=== PATIENT | male | born 1985 | race Caucasian/White ===

== ENCOUNTER 2016-06-24 20:11 | Emergency (ER) | payer OTHER ==
[~2016-06-24 20:11] MED LIST: /QUET25TA; CELE20TA
[2016-06-24] MEDS ORDERED: predniSONE 20 MG TAB As Ordered ONE (21:41)
[2016-06-24] MEDS ORDERED: AZITHROMYCIN 250 MG TAB As Ordered ONE (21:41)
--- NOTE | 2016-06-24 21:49 | EDDOCDS ---
Nurse's Notes [facility] Name: Sher Rollins Age: 30 yrs Sex: Male : 1985 Arrival Date: 06/24/2016 Time: 20:11 Bed TR8 Private MD: Rachel Richard C Diagnosis: Acute upper respiratory infections of multiple and unspecified sites;Acute bronchitis Presentation: 06/24 20:14 Presenting complaint: Patient states: Sick on and off for months--trouble breathing, mcp coughing, chills, hot flashes, headache, losing voice. Adult Sepsis Screening: The patient does not have new or worsening altered mentation. Patient's respiratory rate is less than 22. Systolic blood pressure is greater than 100. Patient has a qSOFA score of 0- Negative Sepsis Screen. Suicide/Homicide risk assessment- the patient denies having any suicidal and/or homicidal ideations and does not present with any other emotional, behavioral or mental health complaints. Status: Patient is not a personal service representative or dependent. Transition of care: patient was not received from another setting of care. 20:14 Acuity: CONRAD Level 4 [facility] 20:14 Method Of Arrival: Walkin/Carried/Asstd [facility] Triage Assessment: 20:17 General: Appears in no apparent distress, Behavior is cooperative. Pain: Location: [facility] headache Pain currently is 4 out of 10 on a pain scale. HIV screening NA for this visit Offered previously. Neurological: Reports headache. Respiratory: Airway is patent Respiratory effort is even, unlabored, Reports cough that is non-productive, persistent. Derm: Skin is pink, warm & dry. Historical: - Allergies: PENICILLINS; - Home Meds: 1. Nexium 40 mg Oral cpDR 1 cap 2 times per day 2. is starting topamax tomorrow - PMHx: GERD; Hiatal Hernia; nerve pain; Chronic Back pain; - PSHx: eye surgery x2; - Social history: Smoking status: Patient states former smoker of tobacco. No barriers to communication noted, The patient speaks fluent Tanzanian. - Family history: Not pertinent. - : The pt / caregiver states he / she is not on anticoagulants. Home medication list is obtained from the patient. - Exposure Risk Screening:: None identified. Screenin:47 Screening information is obtained from the patient. Fall risk: No risks identified. cz Assistance ADL's: requires no assistance with activities of daily living. Abuse/DV Screen: The patient / caregiver reports he/she is: not in a situation that causes fear, pain or injury. Nutritional screening: No deficits noted. home support is adequate. Assessment: 21:47 Reassessment: Patient appears in no apparent distress at this time. cz Vital Signs: 20:12 BP 158 / 111; Pulse 90; Resp 18; Temp 99.3(O); Pulse Ox 99% ; Weight 70.31 kg; Height 5 elp ft. 9 in. (175.26 cm); Pain 0/10; 21:46 BP 154 / 105; Pulse 90; Resp 18; Pulse Ox 98% on R/A; jb5 20:12 Body Mass Index 22.89 (70.31 kg, 175.26 cm) [facility] Vitals: 20:12 Log In Time: June 24, 2016 at 20:10. elp ED Course: 20:12 Patient visited by Celia Dodd PCA. elp 20:12 Rachel Richard is Private Physician. elp 20:12 Patient moved to Waiting elp 20:13 Patient visited by Celia Dodd PCA. elp 20:13 Patient moved to Pre RCE elp 20:16 Triage Initiated mcp 20:18 Patient visited by Tracy Cantu RN. mcp 21:01 Patient moved to Triage 3 jb5 21:10 [facility] cc[facility] 21:10 Lavon Waller DO is Attending Physician. cc10 21:32 Patient visited by Sean David PA-C. cc10 21:33 Patient visited by Sean David PA-C. cc10 21:40 Rachel Richard is Referral Physician. cc10 21:46 Patient visited by Stacy Lang PCA. jb5 21:47 Patient moved to TR8 jb5 21:47 The patient / caregiver is instructed regarding the plan of care and ED course. cz 21:47 No IV's were initiated during this patient's visit. No procedures done that require cz assistance. Administered Medications: 21:43 Drug: azithromycin 500 mg [azithromycin 250 mg tablet (2 tabs)] Route: PO; cz 21:43 Drug: predniSONE 40 mg [prednisone 20 mg tablet (2 tabs)] Route: PO; cz Order Results: There are currently no results for this order. Outcome: 21:40 Discharge ordered by Provider. cc10 21:47 Discharge Assessment: Patient awake, alert and oriented x 3. No cognitive and/or cz functional deficits noted. Patient verbalized understanding of disposition instructions. patient administered narcotics - no. The following High Risk Discharge criteria are identified: None. Discharged to home ambulatory. Condition: stable. Discharge instructions given to patient, Instructed on discharge instructions, follow up and referral plans. medication usage, Demonstrated understanding of instructions, medications, Pt was receptive of discharge instructions/ teaching. Prescriptions given X 3. No special radiology studies were completed. Property :Personal belongings accompany Pt. 21:48 Patient left the ED. cz Signatures: Tracy Cantu RN RN John Tejeda RN RN cz Baker, Janet, UNIFORM CAP OPERATOR UNIFORM CAP OPERATOR jb5 Celia Dodd, UNIFORM CAP OPERATOR UNIFORM CAP OPERATOR elp Sean David, PA-C PA-C cc10 MTDJorge A
--- NOTE | 2016-06-24 21:49 | EDDOCDS ---
Physician Documentation [facility] Name: Sher Rollins Age: 30 yrs Sex: Male : 1985 Arrival Date: 06/24/2016 Time: 20:11 Bed TR8 Private MD: Rachel Richard C Disposition: 06/24/16 21:40 Discharged to Home/Self Care. Impression: Acute upper respiratory infections of multiple and unspecified sites, Acute bronchitis. - Condition is Stable. - Discharge Instructions: Acute Bronchitis. - Prescriptions for azithromycin 250 mg Oral tablet - take 1 tablet by ORAL route once daily; 4 tablet. Prednisone 20 mg Oral Tablet - take 2 tablet by ORAL route once daily for 5 days; 10 tablet. Albuterol Sulfate 90 mcg/actuation Inhalation HFA Aerosol Inhaler - inhale 2 puff by INHALATION route every 4 hours As needed; 1 Inhaler. - Medication Reconciliation, Local Pharmacy Hours form. - Follow up: Rachel Richard; When: Call to arrange an appointment; Reason: Wound/Symptom Recheck, Recheck today's complaints, Worsening of conditions, Continuance of care. - Problem is an ongoing problem. - Symptoms are unchanged. Historical: - Allergies: PENICILLINS; - Home Meds: 1. Nexium 40 mg Oral cpDR 1 cap 2 times per day 2. is starting topamax tomorrow - PMHx: GERD; Hiatal Hernia; nerve pain; Chronic Back pain; - PSHx: eye surgery x2; - Social history: Smoking status: Patient states former smoker of tobacco. No barriers to communication noted, The patient speaks fluent Surinamese. - Family history: Not pertinent. - : The pt / caregiver states he / she is not on anticoagulants. Home medication list is obtained from the patient. - Exposure Risk Screening:: None identified. Vital Signs: 06/24 20:12 BP 158 / 111; Pulse 90; Resp 18; Temp 99.3(O); Pulse Ox 99% ; Weight 70.31 kg / 155.01 elp lbs; Height 5 ft. 9 in. (175.26 cm); Pain 0/10; 21:46 BP 154 / 105; Pulse 90; Resp 18; Pulse Ox 98% on R/A; jb5 20:12 Body Mass Index 22.89 (70.31 kg, 175.26 cm) elp MDM: 21:39 azithromycin 500 mg PO once ordered. cc10 21:39 predniSONE 40 mg PO once; administer with food or milk ordered. cc10 Administered Medications: 21:43 Drug: azithromycin 500 mg [azithromycin 250 mg tablet (2 tabs)] Route: PO; cz 21:43 Drug: predniSONE 40 mg [prednisone 20 mg tablet (2 tabs)] Route: PO; cz Signatures: Tracy Cantu RN RN mcp Zecher, Calvin, RN RN cz Coniski, Colin, PA-C PAMelissa cc10 MTDD
--- NOTE | 2016-06-28 10:01 | EDDOCDS ---
Physician Documentation [facility] Name: Sher Rollins Age: 30 yrs Sex: Male : 1985 Arrival Date: 06/24/2016 Time: 20:11 Bed TR8 Private MD: Rachel Richard C Disposition: 06/24/16 21:40 Discharged to Home/Self Care. Impression: Acute upper respiratory infections of multiple and unspecified sites, Acute bronchitis. - Condition is Stable. - Discharge Instructions: Acute Bronchitis. - Prescriptions for azithromycin 250 mg Oral tablet - take 1 tablet by ORAL route once daily; 4 tablet. Prednisone 20 mg Oral Tablet - take 2 tablet by ORAL route once daily for 5 days; 10 tablet. Albuterol Sulfate 90 mcg/actuation Inhalation HFA Aerosol Inhaler - inhale 2 puff by INHALATION route every 4 hours As needed; 1 Inhaler. - Medication Reconciliation, Local Pharmacy Hours form. - Follow up: Rachel Richard; When: Call to arrange an appointment; Reason: Wound/Symptom Recheck, Recheck today's complaints, Worsening of conditions, Continuance of care. - Problem is an ongoing problem. - Symptoms are unchanged. Historical: - Allergies: PENICILLINS; - Home Meds: 1. Nexium 40 mg Oral cpDR 1 cap 2 times per day 2. is starting topamax tomorrow - PMHx: GERD; Hiatal Hernia; nerve pain; Chronic Back pain; - PSHx: eye surgery x2; - Social history: Smoking status: Patient states former smoker of tobacco. No barriers to communication noted, The patient speaks fluent Ghanaian. - Family history: Not pertinent. - : The pt / caregiver states he / she is not on anticoagulants. Home medication list is obtained from the patient. - Exposure Risk Screening:: None identified. Vital Signs: 06/24 20:12 BP 158 / 111; Pulse 90; Resp 18; Temp 99.3(O); Pulse Ox 99% ; Weight 70.31 kg / 155.01 elp lbs; Height 5 ft. 9 in. (175.26 cm); Pain 0/10; 21:46 BP 154 / 105; Pulse 90; Resp 18; Pulse Ox 98% on R/A; jb5 20:12 Body Mass Index 22.89 (70.31 kg, 175.26 cm) elp MDM: 21:39 azithromycin 500 mg PO once ordered. cc10 21:39 predniSONE 40 mg PO once; administer with food or milk ordered. cc10 06/25 08:24 T-Sheet-- Draft Copy was scanned into [employer] and attached to record. [facility] Administered Medications: 06/24 21:43 Drug: azithromycin 500 mg [azithromycin 250 mg tablet (2 tabs)] Route: PO; cz 21:43 Drug: predniSONE 40 mg [prednisone 20 mg tablet (2 tabs)] Route: PO; cz Signatures: Tracy Cantu RN RN [facility] John Luz RN RN Sean Pfeiffer, PA-C PA-C cc Marlen Banegas [facility] The chart was reviewed and I authenticate all verbal orders and agree with the evaluation and treatment provided.Attachments: 06/25 08:24 T-Sheet-- Draft Copy [facility] Chart Complete MTDD
--- NOTE | 2016-06-28 10:01 | EDDOCDS ---
Nurse's Notes [facility] Name: Sher Rollins Age: 30 yrs Sex: Male : 1985 Arrival Date: 06/24/2016 Time: 20:11 Bed TR8 Private MD: Rachel Richard C Diagnosis: Acute upper respiratory infections of multiple and unspecified sites;Acute bronchitis Presentation: 06/24 20:14 Presenting complaint: Patient states: Sick on and off for months--trouble breathing, mcp coughing, chills, hot flashes, headache, losing voice. Adult Sepsis Screening: The patient does not have new or worsening altered mentation. Patient's respiratory rate is less than 22. Systolic blood pressure is greater than 100. Patient has a qSOFA score of 0- Negative Sepsis Screen. Suicide/Homicide risk assessment- the patient denies having any suicidal and/or homicidal ideations and does not present with any other emotional, behavioral or mental health complaints. Status: Patient is not a service desk manager or dependent. Transition of care: patient was not received from another setting of care. 20:14 Acuity: CONRAD Level 4 [facility] 20:14 Method Of Arrival: Walkin/Carried/Asstd [facility] Triage Assessment: 20:17 General: Appears in no apparent distress, Behavior is cooperative. Pain: Location: [facility] headache Pain currently is 4 out of 10 on a pain scale. HIV screening NA for this visit Offered previously. Neurological: Reports headache. Respiratory: Airway is patent Respiratory effort is even, unlabored, Reports cough that is non-productive, persistent. Derm: Skin is pink, warm & dry. Historical: - Allergies: PENICILLINS; - Home Meds: 1. Nexium 40 mg Oral cpDR 1 cap 2 times per day 2. is starting topamax tomorrow - PMHx: GERD; Hiatal Hernia; nerve pain; Chronic Back pain; - PSHx: eye surgery x2; - Social history: Smoking status: Patient states former smoker of tobacco. No barriers to communication noted, The patient speaks fluent Norwegian. - Family history: Not pertinent. - : The pt / caregiver states he / she is not on anticoagulants. Home medication list is obtained from the patient. - Exposure Risk Screening:: None identified. Screenin:47 Screening information is obtained from the patient. Fall risk: No risks identified. cz Assistance ADL's: requires no assistance with activities of daily living. Abuse/DV Screen: The patient / caregiver reports he/she is: not in a situation that causes fear, pain or injury. Nutritional screening: No deficits noted. home support is adequate. Assessment: 21:47 Reassessment: Patient appears in no apparent distress at this time. cz Vital Signs: 20:12 BP 158 / 111; Pulse 90; Resp 18; Temp 99.3(O); Pulse Ox 99% ; Weight 70.31 kg; Height 5 elp ft. 9 in. (175.26 cm); Pain 0/10; 21:46 BP 154 / 105; Pulse 90; Resp 18; Pulse Ox 98% on R/A; jb5 20:12 Body Mass Index 22.89 (70.31 kg, 175.26 cm) el Vitals: 20:12 Log In Time: June 24, 2016 at 20:10. elp ED Course: 20:12 Patient visited by Celia Dodd PCA. elp 20:12 Rachel Richard is Private Physician. elp 20:12 Patient moved to Waiting elp 20:13 Patient visited by Celia Dodd PCA. elp 20:13 Patient moved to Pre RCE elp 20:16 Triage Initiated mcp 20:18 Patient visited by Tracy Cantu RN. mcp 21:01 Patient moved to Triage 3 jb5 21:10 [facility] cc[facility] 21:10 Lavon Waller DO is Attending Physician. cc10 21:32 Patient visited by Sean David PA-C. cc10 21:33 Patient visited by Sean David PA-C. cc10 21:40 Rachel Richard is Referral Physician. cc10 21:46 Patient visited by Stacy Lang PCA. jb5 21:47 Patient moved to TR8 jb5 21:47 The patient / caregiver is instructed regarding the plan of care and ED course. cz 21:47 No IV's were initiated during this patient's visit. No procedures done that require cz assistance. 06/25 08:24 T-Sheet-- Draft Copy was scanned into [employer] and attached to record. [facility] Administered Medications: 06/24 21:43 Drug: azithromycin 500 mg [azithromycin 250 mg tablet (2 tabs)] Route: PO; cz 21:43 Drug: predniSONE 40 mg [prednisone 20 mg tablet (2 tabs)] Route: PO; cz Order Results: There are currently no results for this order. Outcome: 21:40 Discharge ordered by Provider. cc10 21:47 Discharge Assessment: Patient awake, alert and oriented x 3. No cognitive and/or cz functional deficits noted. Patient verbalized understanding of disposition instructions. patient administered narcotics - no. The following High Risk Discharge criteria are identified: None. Discharged to home ambulatory. Condition: stable. Discharge instructions given to patient, Instructed on discharge instructions, follow up and referral plans. medication usage, Demonstrated understanding of instructions, medications, Pt was receptive of discharge instructions/ teaching. Prescriptions given X 3. No special radiology studies were completed. Property :Personal belongings accompany Pt. 21:48 Patient left the ED. cz Signatures: Tracy Cantu RN RN John Tejeda RN RN cz Baker, Janet, SOIL SURVEYOR SOIL SURVEYOR Celia Yin, SOIL SURVEYOR SOIL SURVEYOR Sean Lima PA-C PA-C cc10 Marlen Banegas Chart Complete MTDJorge A
--- NOTE | 2016-06-28 10:01 | EDDOCDS ---
Physician Documentation [facility] Name: Sher Rollins Age: 30 yrs Sex: Male : 1985 Arrival Date: 06/24/2016 Time: 20:11 Bed TR8 Private MD: Rachel Richard C Disposition: 06/24/16 21:40 Discharged to Home/Self Care. Impression: Acute upper respiratory infections of multiple and unspecified sites, Acute bronchitis. - Condition is Stable. - Discharge Instructions: Acute Bronchitis. - Prescriptions for azithromycin 250 mg Oral tablet - take 1 tablet by ORAL route once daily; 4 tablet. Prednisone 20 mg Oral Tablet - take 2 tablet by ORAL route once daily for 5 days; 10 tablet. Albuterol Sulfate 90 mcg/actuation Inhalation HFA Aerosol Inhaler - inhale 2 puff by INHALATION route every 4 hours As needed; 1 Inhaler. - Medication Reconciliation, Local Pharmacy Hours form. - Follow up: Rachel Richard; When: Call to arrange an appointment; Reason: Wound/Symptom Recheck, Recheck today's complaints, Worsening of conditions, Continuance of care. - Problem is an ongoing problem. - Symptoms are unchanged. Historical: - Allergies: PENICILLINS; - Home Meds: 1. Nexium 40 mg Oral cpDR 1 cap 2 times per day 2. is starting topamax tomorrow - PMHx: GERD; Hiatal Hernia; nerve pain; Chronic Back pain; - PSHx: eye surgery x2; - Social history: Smoking status: Patient states former smoker of tobacco. No barriers to communication noted, The patient speaks fluent Scottish. - Family history: Not pertinent. - : The pt / caregiver states he / she is not on anticoagulants. Home medication list is obtained from the patient. - Exposure Risk Screening:: None identified. Vital Signs: 06/24 20:12 BP 158 / 111; Pulse 90; Resp 18; Temp 99.3(O); Pulse Ox 99% ; Weight 70.31 kg / 155.01 elp lbs; Height 5 ft. 9 in. (175.26 cm); Pain 0/10; 21:46 BP 154 / 105; Pulse 90; Resp 18; Pulse Ox 98% on R/A; jb5 20:12 Body Mass Index 22.89 (70.31 kg, 175.26 cm) elp MDM: 21:39 azithromycin 500 mg PO once ordered. cc10 21:39 predniSONE 40 mg PO once; administer with food or milk ordered. cc10 06/25 08:24 T-Sheet-- Draft Copy was scanned into [employer] and attached to record. [facility] Administered Medications: 06/24 21:43 Drug: azithromycin 500 mg [azithromycin 250 mg tablet (2 tabs)] Route: PO; cz 21:43 Drug: predniSONE 40 mg [prednisone 20 mg tablet (2 tabs)] Route: PO; cz Signatures: Tracy Cantu RN RN [facility] John Luz RN RN Sean Pfeiffer, PA-C PA-C cc Marlen Banegas [facility] The chart was reviewed and I authenticate all verbal orders and agree with the evaluation and treatment provided.Attachments: 06/25 08:24 T-Sheet-- Draft Copy [facility] Chart Complete MTDD
== END 2016-06-24 21:48 | disposition home or self-care (01) ==
LOC: M ED 20:11
DX: J20.9 Acute bronchitis, unspecified (principal); J06.9 Acute upper respiratory infection, unspecified; K21.9 Gastro-esophageal reflux disease without esophagitis; G89.29 Other chronic pain; M54.9 Dorsalgia, unspecified; G52.9 Cranial nerve disorder, unspecified; K44.9 Diaphragmatic hernia without obstruction or gangrene; Z87.891 Personal history of nicotine dependence; Z79.899 Other long term (current) drug therapy; Z88.0 Allergy status to penicillin

== ENCOUNTER → 2016-07-14 | Outpatient (CLI) | payer OTHER ==
--- NOTE | 2016-07-15 02:40 | REP ---
Clinical: Chronic obstructive pulmonary disease . Comparison: 05/07/2015 . Technique: PA and lateral. Findings: The mediastinum and cardiac silhouette are normal. The lung chavez demonstrate diffuse coarsened markings which may reflect chronic reactive airway disease/bronchitis. No focal consolidation, effusion or pneumothorax. The skeletal structures are intact and normal. Impression: 1. Coarsened markings are suggested which may reflect chronic reactive airway disease/bronchitis. Correlation is recommended. Consider chest CT if the patient remains symptomatic. Signed by Baldomero Campbell MD 07/15/2016 02:31 A
== END ==
LOC: M RAD 16:23
PROVIDERS: ATTEND Physician Assistant Medical
DX: J44.9 Chronic obstructive pulmonary disease, unspecified (principal)

== ENCOUNTER → 2016-08-12 | Outpatient (REF) | payer OTHER | LOC: M LAB REF 16:40 | PROVIDERS: ATTEND Physician Assistant | DX: B34.9 Viral infection, unspecified (principal) ==

== ENCOUNTER → 2016-09-08 | Outpatient (CLI) | payer OTHER ==
--- NOTE | 2016-09-08 15:46 | REP ---
CHEST, TWO VIEWS: HISTORY: COPD. COMPARISON: 07/14/2016. Minimal parabrachial cuffing is present. The heart is normal in size. The pulmonary vasculature is normal in appearance. The bony structure is intact. IMPRESSION: There is minimal peribronchial cuffing consistent with asthma or bronchitis. Signed by Rmoe Lopez MD 09/08/2016 03:51 P
== END ==
LOC: M LAB 14:58
PROVIDERS: ATTEND Physician Assistant Medical
DX: J44.9 Chronic obstructive pulmonary disease, unspecified (principal)

== ENCOUNTER → 2016-11-07 | Outpatient (CLI) | payer OTHER ==
[2016-11-07 10:34] LABS: BASO # 0.1 K/mm3 (0.0-0.2); BASO % 0.9 % (0.0-1.0); EOS # 0.2 K/mm3 (0.0-0.50); EOS % 2.8 % (0.0-3.0); LYMPH # 1.9 K/mm3 (1.5-4.5); LYMPH % 24.7 % (24.0-44.0); MEAN CORPUSCULAR HEMOGLOBIN 34.3 pg (27.0-33.0); MEAN CORPUSCULAR HGB CONC 34.9 g/dl (32.0-36.5); MEAN CORPUSCULAR VOLUME 98.3 fl (80.0-96.0); MONO # 0.4 K/mm3 (0.0-0.8); MONO % 6.1 % (0.0-5.0); NEUTROPHILS # 4.5 K/mm3 (1.8-7.7); NEUTROPHILS % 63.3 % (36.0-66.0); RED CELL DISTRIBUTION WIDTH 12.5 % (11.5-14.5); WHITE BLOOD COUNT 7.1 K/mm3 (4.0-10.0)
[2016-11-07 10:57] LABS: ALBUMIN 3.7 GM/DL (3.2-5.2); ALBUMIN/GLOBULIN RATIO 1.23 (1.00-1.93); ALKALINE PHOSPHATASE 78 U/L (45-117); ALT/SGPT 46 U/L (12-78); ANION GAP 7 MEQ/L (8-16); AST/SGOT 26 U/L (15-37); BILIRUBIN,TOTAL 0.6 MG/DL (0.2-1.0); BLOOD UREA NITROGEN 15 MG/DL (7-18); CARBON DIOXIDE LEVEL 32 MEQ/L (21-32); CHLORIDE LEVEL 101 MEQ/L (98-107); CHOLESTEROL LEVEL 161 MG/DL (<200); GLOMERULAR FILTRATION RATE > 60.0 (>60); GLUCOSE, FASTING 95 MG/DL (70-105); POTASSIUM SERUM 4.6 MEQ/L (3.5-5.1); SODIUM LEVEL 140 MEQ/L (136-145); TOTAL PROTEIN 6.7 GM/DL (6.4-8.2); TRIGLYCERIDES LEVEL 98 MG/DL (<150)
== END ==
LOC: M LAB 09:54
PROVIDERS: ATTEND Physician Assistant Medical
DX: J44.9 Chronic obstructive pulmonary disease, unspecified (principal); Z72.0 Tobacco use

== ENCOUNTER 2016-12-29 15:49 | Emergency (ER) | payer OTHER ==
[~2016-12-29] VITALS: Ht 172.7 cm; Wt 74.3 kg
[2016-12-29 15:52] VITALS: BP 159/89
[2016-12-29] MEDS ORDERED: NEXI40CA PO (16:00)
[2016-12-29] MEDS ORDERED: CLEO300C2 PO (16:54)
== END 2016-12-29 17:01 | disposition home or self-care (01) ==
LOC: M ED 15:49
DX: L02.412 Cutaneous abscess of left axilla (principal); F41.9 Anxiety disorder, unspecified; F32.9 Major depressive disorder, single episode, unspecified; F60.3 Borderline personality disorder; F17.200 Nicotine dependence, unspecified, uncomplicated; Z86.14 Personal history of Methicillin resistant Staphylococcus aureus infection; Z79.899 Other long term (current) drug therapy

== ENCOUNTER → 2017-05-24 | Outpatient (REF) | payer OTHER ==
[~2017-05-24] MED LIST changes: +CHAN1PAK11 PO; +CLEO300C2 PO; +NEXI40CA PO
== END ==
LOC: M LAB REF 15:11
PROVIDERS: ATTEND Internal Medicine Gastroenterology
DX: R19.7 Diarrhea, unspecified (principal)

== ENCOUNTER → 2017-05-29 | Outpatient (CLI) | payer OTHER ==
[2017-05-29 16:46] LABS: FREE T4 0.94 NG/DL (0.76-1.46)
== END ==
LOC: M LAB 15:14
PROVIDERS: ATTEND Internal Medicine Gastroenterology
DX: R19.7 Diarrhea, unspecified (principal)

== ENCOUNTER 2017-06-01 12:57 | Day surgery (SDC) | payer OTHER ==
[~2017-06-01] VITALS: Ht 172.7 cm; Wt 73.1 kg
[2017-06-01] MEDS ORDERED: NS 1,000 ML IV ONE (13:00)
[2017-06-01] MEDS ORDERED: PROPOFOL 500 MG/50 ML VIAL As Ordered ONE (14:59)
[2017-06-01] MEDS ORDERED: LIDOCAINE 2% INJ 100 MG/5 ML SDV (FOR ANES.) As Ordered ONE (15:18)
[2017-06-01] MEDS ORDERED: fentaNYL 100 MCG/2 ML INJECTION (J3010) As Ordered ONE (15:19)
--- NOTE | 2017-06-01 15:32 | ROOR ---
Patient Name: Sher Rollins Procedure Date: 06/01/2017 3:20 PM Date of : 1985 Age: 31 Room: [facility] Gender: Male Note Status: Finalized Procedure: Upper GI endoscopy Indications: Heartburn, Preoperative assessment Providers: Taz CAGE MD Referring MD: MARY CRESPO Requesting Provider: Medicines: Monitored Anesthesia Care Complications: No immediate complications. Procedure: Pre-Anesthesia Assessment: - The heart rate, respiratory rate, oxygen saturations, blood pressure, adequacy of pulmonary ventilation, and response to care were monitored throughout the procedure. The Endoscope was introduced through the mouth, and advanced to the second part of duodenum. The upper GI endoscopy was accomplished without difficulty. The patient tolerated the procedure well. Findings: Very small (insignificant) Hiatal Hernia. The esophagus was normal. The stomach was normal. The examined duodenum was normal. Impression: - Very small (insignificant) Hiatal Hernia. - Normal esophagus. - Normal stomach. - Normal examined duodenum. - No specimens collected. Recommendation: - Continue present medications. Taz Cage MD Taz CAGE MD 06/01/2017 3:31:54 PM This report has been signed electronically. Number of Addenda: 0 Note Initiated On: 06/01/2017 3:20 PM Estimated Blood Loss: Estimated blood loss: none.
--- NOTE | 2017-06-01 15:47 | ROOR ---
Patient Name: Sher Rollins Procedure Date: 06/01/2017 3:21 PM Date of : 1985 Age: 31 Room: [facility] Gender: Male Note Status: Finalized Procedure: Colonoscopy Indications: Diarrhea Providers: Taz CAGE MD Referring MD: MARY CRESPO Requesting Provider: Medicines: Monitored Anesthesia Care Complications: No immediate complications. Procedure: Pre-Anesthesia Assessment: - The heart rate, respiratory rate, oxygen saturations, blood pressure, adequacy of pulmonary ventilation, and response to care were monitored throughout the procedure. The Colonoscope was introduced through the anus and advanced to 5 cm into the ileum. The colonoscopy was performed without difficulty. The patient tolerated the procedure well. The quality of the bowel preparation was good. Findings: The perianal and digital rectal examinations were normal. The colon appeared normal. The terminal ileum appeared normal. Biopsies for histology were taken with a cold forceps from the entire colon for evaluation of microscopic colitis. Impression: - The entire examined colon is normal. - The examined portion of the ileum was normal. - Biopsies were taken with a cold forceps from the entire colon for evaluation of microscopic colitis. Recommendation: - Continue present medications. Taz Cage MD Taz CAGE MD 06/01/2017 3:46:58 PM This report has been signed electronically. Number of Addenda: 0 Note Initiated On: 06/01/2017 3:21 PM Estimated Blood Loss: Estimated blood loss: none.
[2017-06-01 16:17] VITALS: BP 128/85
== END 2017-06-01 16:20 | disposition home or self-care (01) ==
LOC: M OPP 12:57
PROVIDERS: ATTEND Internal Medicine Gastroenterology
DX: R19.7 Diarrhea, unspecified (principal); R12 Heartburn; K44.9 Diaphragmatic hernia without obstruction or gangrene; R01.1 Cardiac murmur, unspecified; F31.9 Bipolar disorder, unspecified; K21.9 Gastro-esophageal reflux disease without esophagitis; M54.9 Dorsalgia, unspecified; L30.9 Dermatitis, unspecified; G62.9 Polyneuropathy, unspecified; J44.9 Chronic obstructive pulmonary disease, unspecified; F17.210 Nicotine dependence, cigarettes, uncomplicated; Z79.899 Other long term (current) drug therapy
CPT/HCPCS: 43235; 45380; 88305; J3010

== ENCOUNTER → 2017-06-05 | Outpatient (CLI) | payer OTHER | LOC: M LAB 12:12 | PROVIDERS: ATTEND Internal Medicine Gastroenterology | DX: R19.7 Diarrhea, unspecified (principal) ==

== ENCOUNTER 2017-07-26 15:34 | Emergency (ER) | payer OTHER | END 2017-07-26 18:43 | disposition left against medical advice (07) | LOC: M ED 15:34 | DX: Z53.21 Procedure and treatment not carried out due to patient leaving prior to being seen by health care provider (principal) ==

== ENCOUNTER 2018-05-07 11:40 | Emergency (ER) | payer MEDICAID, OTHER ==
[2018-05-07] MEDS: CYCLOBENZAPRINE 10 MG TAB PO (12:45)
[2018-05-07] MEDS: predniSONE 20 MG TAB PO (12:45)
[2018-05-07] MEDS: MORPHINE 10 MG/ML 1ML VIAL (J2270) IM (12:45)
== END 2018-05-07 13:54 | disposition home or self-care (01) ==
LOC: M ED 11:40
DX: M54.5 Low back pain (principal); K21.9 Gastro-esophageal reflux disease without esophagitis; J44.9 Chronic obstructive pulmonary disease, unspecified
CPT/HCPCS: J2270

== ENCOUNTER 2018-09-02 09:50 | Emergency (ER) | payer MEDICAID, OTHER ==
[~2018-09-02] VITALS: Ht 175.3 cm; Wt 68.2 kg
[~2018-09-02 09:50] MED LIST changes: +ACET500T15 PO; +CYCL10TA PO; +DULE100A INH; +NEXI20CA PO; +PERC5TAB12 PO; +PRED10TA2 PO; +VENTAER INH; +VITA50005
[2018-09-02 10:49] LABS: BASO # 0.1 10^3/uL (0.0-0.2); BASO % 0.5 % (0.0-1.0); EOS # 0.1 10^3/uL (0.0-0.50); EOS % 0.9 % (0.0-3.0); HEMATOCRIT 46.6 % (42.0-52.0); HEMOGLOBIN 16.3 g/dl (13.5-17.5); LYMPH # 2.1 10^3/uL (1.5-4.5); LYMPH % 21.4 % (24.0-44.0); MEAN CORPUSCULAR HEMOGLOBIN 34.4 pg (27.0-33.0); MEAN CORPUSCULAR VOLUME 98.3 fl (80.0-96.0); MONO # 0.8 10^3/uL (0.0-0.8); MONO % 7.8 % (0.0-5.0); NEUTROPHILS # 6.8 10^3/uL (1.8-7.7); NEUTROPHILS % 68.9 % (36.0-66.0); PLATELET COUNT, AUTOMATED 244 10^3/uL (150-450); RED BLOOD COUNT 4.74 10^6/uL (4.30-6.10); WHITE BLOOD COUNT 9.9 10^3/uL (4.0-10.0)
--- NOTE | 2018-09-02 10:53 | REP ---
Chest two views HISTORY: Chest pain Comparison: 09/08/2016 The lungs are clear. The heart is normal in size. The pulmonary vasculature is normal in appearance. The bony structure is intact. IMPRESSION: No acute disease. Electronically Signed by Rome Lopez MD 09/02/2018 10:45 A
[2018-09-02 11:03] LABS: AMPHETAMINES LEVEL URINE NEGATIVE (NEGATIVE); BARBITURATES URINE NEGATIVE (NEGATIVE); BENZODIAZEPINES URINE NEGATIVE (NEGATIVE); CANNABINOIDS URINE NEGATIVE (NEGATIVE); COCAINE METABOLITE URINE NEGATIVE (NEGATIVE); METHADONE URINE NEGATIVE (NEGATIVE); OPIATES URINE NEGATIVE (NEGATIVE); PHENCYCLIDINE URINE NEGATIVE (NEGATIVE)
[2018-09-02 11:15] LABS: CPK CREATINE PHOSPHOKINASE 198 U/L (39-308); MB/CK RELATIVE INDEX 0.81 (< OR =4); TROPONIN I < 0.02 NG/ML (< 0.10)
[2018-09-02 11:21] LABS: BLOOD UREA NITROGEN 7 MG/DL (7-18); CALCIUM LEVEL 8.8 MG/DL (8.5-10.1); CARBON DIOXIDE LEVEL 27 MEQ/L (21-32); CHLORIDE LEVEL 105 MEQ/L (98-107); CREATININE FOR GFR 0.66 MG/DL (0.70-1.30); GLOMERULAR FILTRATION RATE > 60.0 (>60); GLUCOSE, FASTING 93 MG/DL (70-100); POTASSIUM SERUM 4.4 MEQ/L (3.5-5.1); SODIUM LEVEL 140 MEQ/L (136-145)
[2018-09-02] MEDS ORDERED: ISOVUE-370 76% 125ML VIAL (Q9967 PER ML) As Ordered ONE (11:35)
--- NOTE | 2018-09-02 12:18 | REP ---
CT ANGIO CHEST: HISTORY: Rule out pulmonary embolism. CONTRAST: Isovue 370, 75 mL. There are no filling defects in the main, right and left pulmonary arteries or their branches. The lungs are clear. There is no pleural effusion. The heart is normal in size. There is no aneurysm. There is no mediastinal mass. The bony structure is intact. IMPRESSION: There is no pulmonary embolism. Electronically Signed by Rome Lopez MD 09/02/2018 12:23 P
[2018-09-02 12:36] VITALS: BP 115/59
--- NOTE | 2018-09-02 18:50 | ECGEPIP ---
Stationary ECG Study [facility] - ED Test Date: 2018-09-02 Pat Name: INDIRA MONTGOMERY Department: Room: - Gender: M [employer] Engineer: CHAGO : 1985 Requested By: Ash Bernstein Order Number: [id number] Reading MD: Marlen Mccartney Measurements Intervals [place] Rate: 78 P: 37 TX: 145 QRS: 23 QRSD: 98 T: 63 QT: 365 QTc: 417 Interpretive Statements SINUS RHYTHM SIMILAR 03/26/14 Electronically Signed On 09-02-2018 18:49:55 EDT by Marlen cMcartney
== END 2018-09-02 13:14 | disposition home or self-care (01) ==
LOC: M ED 09:50
DX: K21.9 Gastro-esophageal reflux disease without esophagitis (principal); F41.9 Anxiety disorder, unspecified; J45.909 Unspecified asthma, uncomplicated; J44.9 Chronic obstructive pulmonary disease, unspecified; I73.00 Raynaud's syndrome without gangrene; Z79.899 Other long term (current) drug therapy; F17.210 Nicotine dependence, cigarettes, uncomplicated
CPT/HCPCS: 36415; 71046; 71275; 80048; 80307; 82550; 82553; 84443; 85025; 85379; 93005; 99284; Q9967

== ENCOUNTER → 2018-09-28 | Outpatient (REF) | payer OTHER ==
[~2018-09-28] MED LIST changes: -/QUET25TA; +SERO1TAB3
[2018-09-28 17:22] LABS: INFLUENZA A AMPLIFICATION NEGATIVE (NEGATIVE); INFLUENZA B AMPLIFICATION NEGATIVE (NEGATIVE)
== END ==
LOC: M LAB REF 16:38
PROVIDERS: ATTEND Physician Assistant
DX: J11.1 Influenza due to unidentified influenza virus with other respiratory manifestations (principal)

== ENCOUNTER → 2019-06-25 | Outpatient (CLI) | payer OTHER ==
[2019-06-25 13:17] LABS: APPEARANCE, URINE CLEAR (CLEAR); BACTERIA, URINE AUTO NEGATIVE (NEGATIVE); BILIRUBIN, URINE AUTO NEGATIVE (NEGATIVE); BLOOD, URINE BLOOD NEGATIVE (NEGATIVE); COLOR, URINE YELLOW (YELLOW); GLUCOSE, URINE (UA) AUTO NEGATIVE (NEGATIVE); KETONE, URINE AUTO NEGATIVE (NEGATIVE); LEUKOCYTE ESTERASE, URINE AUTO NEGATIVE (NEGATIVE); NITRITE, URINE AUTO NEGATIVE (NEGATIVE); PROTEIN, URINE AUTO NEGATIVE (NEGATIVE); RBC, URINE AUTO 2 /HPF (0-3); SPECIFIC GRAVITY URINE AUTO 1.004 (1.002-1.035); SQUAMOUS EPITHELIAL CELL UR AU 0 /HPF (0-6); UROBILINOGEN, URINE AUTO 0.2 mg/dL (0.0-2.0); WBC, URINE AUTO 1 /HPF (0-3)
[2019-06-25 13:27] LABS: BASO # 0.1 10^3/uL (0.0-0.2); BASO % 0.9 % (0.0-1.0); EOS # 0.1 10^3/uL (0.0-0.5); EOS % 0.9 % (0.0-3.0); HEMATOCRIT 51.7 % (42.0-52.0); LYMPH # 2.1 10^3/uL (1.5-5.0); LYMPH % 23.1 % (24.0-44.0); MEAN CORPUSCULAR HEMOGLOBIN 32.5 pg (27.0-33.0); MEAN CORPUSCULAR HGB CONC 32.9 g/dl (32.0-36.5); MEAN CORPUSCULAR VOLUME 98.9 fl (80.0-96.0); MONO # 0.9 10^3/uL (0.0-0.8); MONO % 10.5 % (0.0-5.0); NEUTROPHILS # 5.7 10^3/uL (1.5-8.5); NEUTROPHILS % 63.3 % (36.0-66.0); PLATELET COUNT, AUTOMATED 344 10^3/uL (150-450); RED BLOOD COUNT 5.23 10^6/uL (4.30-6.10)
[2019-06-25 13:35] LABS: ALBUMIN 3.7 GM/DL (3.2-5.2); ALT/SGPT 30 U/L (12-78); BILIRUBIN,TOTAL 0.5 MG/DL (0.2-1.0); BLOOD UREA NITROGEN 4 MG/DL (7-18); CALCIUM LEVEL 9.4 MG/DL (8.5-10.1); CARBON DIOXIDE LEVEL 28 MEQ/L (21-32); CHLORIDE LEVEL 100 MEQ/L (98-107); CHOLESTEROL LEVEL 170 MG/DL (<200); CHOLESTEROL RISK RATIO 1.478 (<5); CREATININE FOR GFR 0.67 MG/DL (0.70-1.30); FREE T4 0.96 NG/DL (0.76-1.46); GLOMERULAR FILTRATION RATE > 60.0 (>60); GLUCOSE, FASTING 63 MG/DL (70-100); HDL CHOLESTEROL 115 MG/DL (>40); LDL CHOLESTEROL 44 MG/DL (<100); NON-HDL-C 55 MG/DL; POTASSIUM SERUM 4.8 MEQ/L (3.5-5.1); SODIUM LEVEL 137 MEQ/L (136-145); TOTAL PROTEIN 7.9 GM/DL (6.4-8.2); TRIGLYCERIDES LEVEL 55 MG/DL (<150)
[2019-06-25 17:14] LABS: HEMOGLOBIN A1c 5.1 %
== END ==
LOC: M LAB 10:54
PROVIDERS: ATTEND Nurse Practitioner Family
DX: F41.9 Anxiety disorder, unspecified (principal)

== ENCOUNTER → 2019-07-29 | Outpatient (REF) | payer OTHER ==
[2019-07-29 20:06] LABS: INFLUENZA A AMPLIFICATION POSITIVE (NEGATIVE); INFLUENZA B AMPLIFICATION NEGATIVE (NEGATIVE)
== END ==
LOC: M LAB REF 18:52
PROVIDERS: ATTEND Physician Assistant Medical
DX: J11.1 Influenza due to unidentified influenza virus with other respiratory manifestations (principal)

== ENCOUNTER → 2020-03-24 | Outpatient (REF) | payer OTHER, MEDICAID ==
[~2020-03-24] MED LIST changes: +CYCL-707 PO; -CYCL10TA PO
[2020-03-24 12:12] LABS: BASO # 0.1 10^3/uL (0.0-0.2); BASO % 0.6 % (0.0-1.0); EOS # 0.2 10^3/uL (0.0-0.5); EOS % 1.9 % (0.0-3.0); HEMATOCRIT 48.2 % (42.0-52.0); HEMOGLOBIN 16.1 g/dl (13.5-17.5); LYMPH # 2.4 10^3/uL (1.5-5.0); LYMPH % 30.2 % (24.0-44.0); MEAN CORPUSCULAR HEMOGLOBIN 34.6 pg (27.0-33.0); MEAN CORPUSCULAR HGB CONC 33.4 g/dl (32.0-36.5); MEAN CORPUSCULAR VOLUME 103.7 fl (80.0-96.0); MONO % 12.6 % (0.0-5.0); NEUTROPHILS # 4.3 10^3/uL (1.5-8.5); NEUTROPHILS % 54.1 % (36.0-66.0); PLATELET COUNT, AUTOMATED 182 10^3/uL (150-450); RED BLOOD COUNT 4.65 10^6/uL (4.30-6.10); WHITE BLOOD COUNT 7.9 10^3/uL (4.0-10.0)
[2020-03-24 12:44] LABS: ALBUMIN 3.7 GM/DL (3.2-5.2); ALT/SGPT 51 U/L (12-78); BILIRUBIN,TOTAL 0.8 MG/DL (0.2-1.0); BLOOD UREA NITROGEN 6 MG/DL (7-18); CALCIUM LEVEL 9.4 MG/DL (8.5-10.1); CARBON DIOXIDE LEVEL 30 MEQ/L (21-32); CHLORIDE LEVEL 103 MEQ/L (98-107); CREATININE FOR GFR 0.73 MG/DL (0.70-1.30); GLOMERULAR FILTRATION RATE > 60.0 (>60); GLUCOSE, FASTING 94 MG/DL (70-100); POTASSIUM SERUM 4.3 MEQ/L (3.5-5.1); SODIUM LEVEL 138 MEQ/L (136-145); TOTAL PROTEIN 7.4 GM/DL (6.4-8.2)
== END ==
LOC: M LAB REF 11:22
PROVIDERS: ATTEND Nurse Practitioner Family
DX: M54.89 Other dorsalgia (principal); F34.1 Dysthymic disorder; F41.9 Anxiety disorder, unspecified

== ENCOUNTER 2020-06-28 22:06 | Emergency (ER) | payer OTHER, MEDICAID ==
[~2020-06-28] VITALS: Ht 175.3 cm; Wt 65.9 kg
[2020-06-28] MEDS ORDERED: NS 1,000 ML IV ONE (22:30)
[2020-06-28] MEDS ORDERED: PANTOPRAZOLE 40MG VIAL (C9113 PER 1) IV ONE (22:30)
[2020-06-28] MEDS ORDERED: ASPIRIN 81 MG CHEW TABLET PO ONE (22:30)
[2020-06-28 22:41] LABS: BASO # 0.1 10^3/uL (0.0-0.2); BASO % 0.7 % (0.0-1.0); EOS # 0.2 10^3/uL (0.0-0.5); EOS % 1.9 % (0.0-3.0); HEMATOCRIT 47.3 % (42.0-52.0); LYMPH # 3.3 10^3/uL (1.5-5.0); LYMPH % 37.3 % (24.0-44.0); MEAN CORPUSCULAR HEMOGLOBIN 34.2 pg (27.0-33.0); MEAN CORPUSCULAR HGB CONC 33.8 g/dl (32.0-36.5); MEAN CORPUSCULAR VOLUME 101.1 fl (80.0-96.0); MONO # 0.9 10^3/uL (0.0-0.8); MONO % 10.4 % (0.0-5.0); NEUTROPHILS # 4.4 10^3/uL (1.5-8.5); NEUTROPHILS % 48.9 % (36.0-66.0); PLATELET COUNT, AUTOMATED 265 10^3/uL (150-450); RED BLOOD COUNT 4.68 10^6/uL (4.30-6.10); WHITE BLOOD COUNT 8.9 10^3/uL (4.0-10.0)
--- NOTE | 2020-06-28 23:05 | REPVR ---
PROCEDURE INFORMATION: Exam: XR Chest, 2 Views Exam date and time: 06/28/2020 10:15 PM Age: 34 years old Clinical indication: Chest pain; Type not specified TECHNIQUE: Imaging protocol: XR of the chest Views: 2 views. COMPARISON: CR Chest, 2 view PA, Lat 09/02/2018 10:33 AM FINDINGS: Lungs: Unremarkable. No consolidation. Pleural space: Unremarkable. No pleural effusion. No pneumothorax. Heart/Mediastinum: Unremarkable. No cardiomegaly. Bones/joints: Unremarkable. IMPRESSION: Negative chest without change from 09/02/2018. Electronically signed by: Praful Borja On 06/28/2020 23:06:26 PM
[2020-06-28 23:26] LABS: ALBUMIN 3.9 GM/DL (3.2-5.2); ALT/SGPT 41 U/L (12-78); BILIRUBIN,DIRECT 0.1 MG/DL (0.0-0.2); BILIRUBIN,TOTAL 0.3 MG/DL (0.2-1.0); BLOOD UREA NITROGEN 10 MG/DL (7-18); CALCIUM LEVEL 8.8 MG/DL (8.5-10.1); CARBON DIOXIDE LEVEL 29 MEQ/L (21-32); CHLORIDE LEVEL 105 MEQ/L (98-107); CK-MB VALUE MASS < 1.0 NG/ML (<3.6); CPK CREATINE PHOSPHOKINASE 128 U/L (39-308); CREATININE FOR GFR 0.79 MG/DL (0.70-1.30); ETHYL ALCOHOL (ETHANOL) 0.414 % (0.000-0.010); FREE T4 0.91 NG/DL (0.76-1.46); GLOMERULAR FILTRATION RATE > 60.0 (>60); GLUCOSE, FASTING 99 MG/DL (70-100); LIPASE 206 U/L (73-393); MB/CK RELATIVE INDEX 0.78 (< OR =4); SODIUM LEVEL 140 MEQ/L (136-145); TOTAL PROTEIN 7.4 GM/DL (6.4-8.2); TROPONIN I < 0.02 NG/ML (< 0.10)
[2020-06-28 23:39] LABS: INR 0.83; PARTIAL THROMBOPLASTIN TIME 27.8 SECONDS (24.2-38.5); PROTHROMBIN TIME 11.6 SECONDS (12.5-14.3)
[2020-06-28 23:46] LABS: D-DIMER QUANT < 270 ng/ml (<500)
[2020-06-29 00:57] VITALS: BP 134/93
--- NOTE | 2020-06-30 07:57 | ECGEPIP ---
[facility] - ED Test Date: 2020-06-28 Pat Name: INDIRA MONTGOMERY Department: Room: - Gender: Male Clinic Nurse: : [id number] Requested By: SCOTT Aguilar Order Number: [id number] Reading MD: Marlen Mccartney Measurements Intervals [place] Rate: 84 P: 47 IN: 149 QRS: 6 QRSD: 97 T: 53 QT: 342 QTc: 405 Interpretive Statements SINUS RHYTHM WITH SINUS ARRHYTHMIA SIMILAR 09/02/18 Electronically Signed on 06-30-2020 7:57:09 EST by Marlen Mccartney
== END 2020-06-29 01:05 | disposition home or self-care (01) ==
LOC: M ED 22:06
DX: F10.120 Alcohol abuse with intoxication, uncomplicated (principal); R07.9 Chest pain, unspecified; R06.02 Shortness of breath; K21.9 Gastro-esophageal reflux disease without esophagitis; J44.9 Chronic obstructive pulmonary disease, unspecified; Z79.899 Other long term (current) drug therapy
CPT/HCPCS: 71046; 80048; 80076; 82550; 82553; 83690; 84439; 84443; 85025; 85379; 85610; 85730; 93005; 93041; 94760; 96374; 99285; C9113; G0480

== ENCOUNTER → 2020-10-26 | Outpatient (REF) | payer OTHER, MEDICAID | LOC: M LAB REF 12:03 | PROVIDERS: ATTEND Surgery | DX: S41.102A Unspecified open wound of left upper arm, initial encounter (principal) ==

== ENCOUNTER 2021-06-21 19:20 | Emergency (ER) | payer OTHER, MEDICAID ==
[~2021-06-21] VITALS: Ht 175.3 cm; Wt 71.9 kg
[2021-06-21 19:20] VITALS: BP 153/96
== END 2021-06-21 20:44 | disposition left against medical advice (07) ==
LOC: M ED 19:20
DX: Z53.21 Procedure and treatment not carried out due to patient leaving prior to being seen by health care provider (principal)

== ENCOUNTER → 2021-11-16 | Outpatient (CLI) | payer OTHER | LOC: M RAD 10:41 | PROVIDERS: ATTEND Nurse Practitioner Family | DX: R06.02 Shortness of breath (principal) ==

== ENCOUNTER → 2022-02-02 | Outpatient (CLI) | payer OTHER ==
[2022-02-02 19:11] LABS: HEPATITIS B CORE ANTIBODY IGM NEGATIVE (NEGATIVE); HEPATITIS B SURFACE ANTIGEN NEGATIVE (NEGATIVE); HEPATITIS C VIRUS ABY INDEX < 0.0 INDEX (<0.8); HIV 1&2 SCREEN CENTAUR NEGATIVE (NEGATIVE)
== END ==
LOC: M LAB 16:05
PROVIDERS: ATTEND Physician Assistant
DX: L73.2 Hidradenitis suppurativa (principal)

== ENCOUNTER → 2022-04-14 | Outpatient (CLI) | payer MEDICAID | LOC: M OUTALCOH 10:01 | PROVIDERS: ATTEND Psychiatry & Neurology Psychiatry | DX: F10.10 Alcohol abuse, uncomplicated (principal) ==

== ENCOUNTER → 2022-05-18 | Outpatient (RCR) | payer MEDICAID | LOC: M OUTALCOH 04-20 12:53 | PROVIDERS: ATTEND Psychiatry & Neurology Psychiatry | DX: F10.20 Alcohol dependence, uncomplicated (principal); F17.200 Nicotine dependence, unspecified, uncomplicated ==

== ENCOUNTER 2022-05-24 11:11 | Emergency (ER) | payer MEDICAID ==
[~2022-05-24] VITALS: Ht 172.7 cm; Wt 80.0 kg
[2022-05-24 11:11] VITALS: BP 118/72
[2022-05-24] MEDS ORDERED: AMLO1TAB24 (11:18)
[2022-05-24] MEDS ORDERED: OMEP40CA5 (11:18)
[2022-05-24] MEDS ORDERED: GABA800T4 (11:18)
[2022-05-24] MEDS ORDERED: LIDO1PAD (11:18)
[2022-05-24] MEDS ORDERED: PROP80CA (11:18)
[2022-05-24] MEDS ORDERED: VITA1CAP25 (11:18)
[2022-05-24] MEDS ORDERED: METH-1165 (11:18)
[2022-05-24] MEDS ORDERED: ADAL80PE4 (11:18)
== END 2022-05-24 13:10 | disposition left against medical advice (07) ==
LOC: M ED 11:11
DX: Z53.21 Procedure and treatment not carried out due to patient leaving prior to being seen by health care provider (principal)

== ENCOUNTER 2022-06-01 12:30 | Outpatient (RCR) | payer MEDICAID ==
[~2022-06-01 12:30] MED LIST changes: +ADAL80PE4; +AMLO1TAB24; +GABA800T4; +LIDO1PAD; +METH-1165; +OMEP40CA5; +PROP80CA; +VITA1CAP25
== END 2022-06-18 ==
LOC: M OUTALCOH 12:30
PROVIDERS: ATTEND Psychiatry & Neurology Psychiatry
DX: F10.20 Alcohol dependence, uncomplicated (principal); F17.200 Nicotine dependence, unspecified, uncomplicated

== ENCOUNTER 2022-06-16 09:00 | Outpatient (RCR) | payer MEDICAID | END 2022-06-18 | LOC: M OUTALCOH 09:00 | PROVIDERS: ATTEND Psychiatry & Neurology Psychiatry | DX: F10.10 Alcohol abuse, uncomplicated (principal); F17.200 Nicotine dependence, unspecified, uncomplicated ==

== ENCOUNTER → 2022-06-30 | Outpatient (CLI) | payer OTHER ==
[2022-06-30 14:03] LABS: BASO % 0.4 % (0.0-1.0); EOS # 0.2 10^3/uL (0.0-0.5); EOS % 2.3 % (0.0-3.0); HEMATOCRIT 52.6 % (42.0-52.0); LYMPH # 2.7 10^3/uL (1.5-5.0); LYMPH % 37.9 % (24.0-44.0); MEAN CORPUSCULAR HGB CONC 33.5 g/dl (32.0-36.5); MEAN CORPUSCULAR VOLUME 95.6 fl (80.0-96.0); MONO # 0.6 10^3/uL (0.0-0.8); MONO % 9.1 % (2.0-8.0); NEUTROPHILS # 3.5 10^3/uL (1.5-8.5); NEUTROPHILS % 49.9 % (36.0-66.0); PLATELET COUNT, AUTOMATED 252 10^3/uL (150-450)
[2022-06-30 14:12] LABS: HEMOGLOBIN 17.6 g/dl (13.5-17.5)
[2022-06-30 14:28] LABS: C REACTIVE PROTEIN QUANTITATIV < 0.40 MG/DL (<1.0)
[2022-06-30 14:29] LABS: RHEUMATOID FACTOR QUANT 4.7 IU/ML (<14)
[2022-06-30 14:31] LABS: ERYTHROCYTE SEDIMENTATION RATE 5 mm/hr (0-15)
== END ==
LOC: M PLALAB 10:24
PROVIDERS: ATTEND Physician Assistant
DX: M51.36 Other intervertebral disc degeneration, lumbar region (principal)

== ENCOUNTER → 2022-07-19 | Outpatient (RCR) | payer MEDICAID | LOC: M OUTALCOH 06-21 09:00 | PROVIDERS: ATTEND Psychiatry & Neurology Psychiatry | DX: F10.20 Alcohol dependence, uncomplicated (principal); F17.200 Nicotine dependence, unspecified, uncomplicated ==

== ENCOUNTER 2022-08-10 14:00 | Outpatient (RCR) | payer MEDICAID ==
[~2022-08-10 14:00] MED LIST changes: -DULE100A INH; +MOME13HF8 INH
== END 2022-08-16 ==
LOC: M OUTALCOH 14:00
PROVIDERS: ATTEND Psychiatry & Neurology Psychiatry
DX: F10.20 Alcohol dependence, uncomplicated (principal); F17.200 Nicotine dependence, unspecified, uncomplicated

== ENCOUNTER → 2022-09-01 | Outpatient (REF) | payer MEDICAID ==
[2022-09-01 13:59] LABS: BASO % 0.5 % (0.0-1.0); EOS # 0.2 10^3/uL (0.0-0.5); EOS % 1.7 % (0.0-3.0); HEMATOCRIT 50.9 % (42.0-52.0); HEMOGLOBIN 17.2 g/dl (13.5-17.5); LYMPH # 3.3 10^3/uL (1.5-5.0); LYMPH % 36.9 % (24.0-44.0); MEAN CORPUSCULAR HGB CONC 33.8 g/dl (32.0-36.5); MEAN CORPUSCULAR VOLUME 94.8 fl (80.0-96.0); MONO # 0.9 10^3/uL (0.0-0.8); MONO % 10.3 % (2.0-8.0); NEUTROPHILS # 4.4 10^3/uL (1.5-8.5); PLATELET COUNT, AUTOMATED 252 10^3/uL (150-450); RED BLOOD COUNT 5.37 10^6/uL (4.30-6.10); WHITE BLOOD COUNT 8.8 10^3/uL (4.0-10.0)
[2022-09-01 14:03] LABS: THYROID STIMULATING HORMONE 1.547 uIU/ML (0.55-4.78)
[2022-09-01 14:15] LABS: ALBUMIN 3.9 G/DL (3.2-5.2); ALKALINE PHOSPHATASE 115 U/L (46-116); ALT/SGPT 31 U/L (7.0-40); AST/SGOT 24 U/L (<34); BILIRUBIN,TOTAL 0.8 MG/DL (0.3-1.2); BLOOD UREA NITROGEN 9 MG/DL (9-23); CALCIUM LEVEL 9.7 MG/DL (8.5-10.1); CARBON DIOXIDE LEVEL 30 MMOL/L (20-31); CHLORIDE LEVEL 103 MMOL/L (98-107); CHOLESTEROL LEVEL 166 MG/DL (<200); CHOLESTEROL RISK RATIO 2.05 (<5); CREATININE FOR GFR 0.75 MG/DL (0.70-1.30); GLOMERULAR FILTRATION RATE > 60.0 (>60); GLUCOSE, FASTING 95 MG/DL (60-100); HDL CHOLESTEROL 80.6 MG/DL (>40); LDL CHOLESTEROL 63.2 MG/DL (<100); NON-HDL-C 85.4 MG/DL; POTASSIUM SERUM 4.7 MMOL/L (3.5-5.1); SODIUM LEVEL 139 MMOL/L (136-145); TRIGLYCERIDES LEVEL 111 MG/DL (<150)
[2022-09-01 14:18] LABS: HEMOGLOBIN A1c 5.6 % (4.0-6.0)
== END ==
LOC: M LAB REF 12:07
PROVIDERS: ATTEND Nurse Practitioner Family
DX: Z13.228 Encounter for screening for other metabolic disorders (principal); R74.8 Abnormal levels of other serum enzymes

== ENCOUNTER 2022-09-07 15:00 | Outpatient (RCR) | payer MEDICAID | END 2022-09-16 | LOC: M OUTALCOH 15:00 | PROVIDERS: ATTEND Psychiatry & Neurology Psychiatry | DX: F10.20 Alcohol dependence, uncomplicated (principal); F17.200 Nicotine dependence, unspecified, uncomplicated ==

== ENCOUNTER 2022-10-02 11:56 | Emergency (ER) | payer MEDICAID, OTHER ==
[~2022-10-02] VITALS: Ht 175.3 cm; Wt 73.9 kg
[2022-10-02] MEDS ORDERED: MEDR4PAK PO (13:29)
[2022-10-02 13:44] VITALS: BP 109/63
== END 2022-10-02 13:45 | disposition home or self-care (01) ==
LOC: M ED 11:56
DX: M54.31 Sciatica, right side (principal); M51.37 Other intervertebral disc degeneration, lumbosacral region; F17.200 Nicotine dependence, unspecified, uncomplicated; Z79.899 Other long term (current) drug therapy

== ENCOUNTER 2022-10-12 15:00 | Outpatient (RCR) | payer MEDICAID ==
[~2022-10-12 15:00] MED LIST changes: +MEDR4PAK PO
== END 2022-10-16 ==
LOC: M OUTALCOH 15:00
PROVIDERS: ATTEND Psychiatry & Neurology Psychiatry
DX: F10.20 Alcohol dependence, uncomplicated (principal); F17.200 Nicotine dependence, unspecified, uncomplicated

== ENCOUNTER → 2022-11-10 | Outpatient (CLI) | payer OTHER | LOC: M RAD 12:17 | PROVIDERS: ATTEND Nurse Practitioner Family | DX: N50.811 Right testicular pain (principal) ==

== ENCOUNTER → 2022-12-29 | Outpatient (REF) | payer OTHER, MEDICAID | LOC: M SFHCDERM 17:36 | PROVIDERS: ATTEND Physician Assistant | DX: L73.2 Hidradenitis suppurativa (principal) ==

== ENCOUNTER → 2023-03-07 | Outpatient (REF) | payer MEDICAID | LOC: M SFHCDERM 14:48 | PROVIDERS: ATTEND Nurse Practitioner Family | DX: L73.2 Hidradenitis suppurativa (principal) ==

== ENCOUNTER → 2023-03-27 | Outpatient (REF) | payer MEDICAID, OTHER ==
[2023-03-27 18:11] LABS: BASO # 0.1 10^3/uL (0.0-0.2); BASO % 0.6 % (0.0-1.0); EOS # 0.2 10^3/uL (0.0-0.5); EOS % 2.4 % (0.0-3.0); HEMATOCRIT 53.4 % (42.0-52.0); HEMOGLOBIN 18.6 g/dl (13.5-17.5); LYMPH # 3.2 10^3/uL (1.5-5.0); MEAN CORPUSCULAR HEMOGLOBIN 35.2 pg (27.0-33.0); MEAN CORPUSCULAR HGB CONC 34.8 g/dl (32.0-36.5); MEAN CORPUSCULAR VOLUME 100.9 fl (80.0-96.0); MONO # 0.9 10^3/uL (0.0-0.8); MONO % 10.1 % (2.0-8.0); NEUTROPHILS # 4.4 10^3/uL (1.5-8.5); NEUTROPHILS % 50.2 % (36.0-66.0); PLATELET COUNT, AUTOMATED 244 10^3/uL (150-450); RED BLOOD COUNT 5.29 10^6/uL (4.30-6.10); WHITE BLOOD COUNT 8.8 10^3/uL (4.0-10.0)
[2023-03-27 18:33] LABS: ALBUMIN 4.4 G/DL (3.2-5.2); ALKALINE PHOSPHATASE 90 U/L (46-116); ALT/SGPT 36 U/L (7.0-40); AST/SGOT 30 U/L (<34); BILIRUBIN,TOTAL 0.8 MG/DL (0.3-1.2); BLOOD UREA NITROGEN 11 MG/DL (9-23); CARBON DIOXIDE LEVEL 30 MMOL/L (20-31); CHLORIDE LEVEL 100 MMOL/L (98-107); CREATININE FOR GFR 0.74 MG/DL (0.70-1.30); GLOMERULAR FILTRATION RATE > 60.0 (>60); GLUCOSE, FASTING 70 MG/DL (60-100); POTASSIUM SERUM 4.2 MMOL/L (3.5-5.1); SODIUM LEVEL 138 MMOL/L (136-145); TOTAL PROTEIN 7.6 G/DL (5.7-8.2)
== END ==
LOC: M LAB REF 16:59
PROVIDERS: ATTEND Nurse Practitioner Family
DX: Z01.818 Encounter for other preprocedural examination (principal)

== ENCOUNTER → 2023-05-18 | Outpatient (REF) | payer MEDICAID | LOC: M SFHCDERM 09:15 | PROVIDERS: ATTEND Physician Assistant | DX: L73.2 Hidradenitis suppurativa (principal) ==

== ENCOUNTER → 2023-10-18 | Outpatient (REF) | payer OTHER, MEDICAID ==
[2023-10-18 14:29] LABS: BASO # 0.1 10^3/uL (0.0-0.2); BASO % 0.9 % (0.0-1.0); EOS # 0.1 10^3/uL (0.0-0.5); HEMATOCRIT 48.8 % (42.0-52.0); LYMPH # 3.5 10^3/uL (1.5-5.0); LYMPH % 49.9 % (24.0-44.0); MEAN CORPUSCULAR HEMOGLOBIN 35.3 pg (27.0-33.0); MEAN CORPUSCULAR HGB CONC 34.8 g/dl (32.0-36.5); MEAN CORPUSCULAR VOLUME 101.5 fl (80.0-96.0); MONO # 0.7 10^3/uL (0.0-0.8); NEUTROPHILS # 2.6 10^3/uL (1.5-8.5); NEUTROPHILS % 36.5 % (36.0-66.0); PLATELET COUNT, AUTOMATED 250 10^3/uL (150-450); RED BLOOD COUNT 4.81 10^6/uL (4.30-6.10)
[2023-10-18 15:00] LABS: ALBUMIN 3.5 G/DL (3.2-5.2); ALKALINE PHOSPHATASE 95 U/L (46-116); ALT/SGPT 24 U/L (7.0-40); AST/SGOT 27 U/L (<34); BILIRUBIN,TOTAL 0.8 MG/DL (0.3-1.2); BLOOD UREA NITROGEN 10 MG/DL (9-23); CALCIUM LEVEL 8.8 MG/DL (8.5-10.1); CARBON DIOXIDE LEVEL 33 MMOL/L (20-31); CHLORIDE LEVEL 102 MMOL/L (98-107); CHOLESTEROL LEVEL 159 MG/DL (<200); CHOLESTEROL RISK RATIO 1.67 (<5); CREATININE FOR GFR 0.85 MG/DL (0.70-1.30); GLOMERULAR FILTRATION RATE > 60.0 (>60); GLUCOSE, FASTING 84 MG/DL (60-100); MAGNESIUM LEVEL 1.6 MG/DL (1.8-2.4); POTASSIUM SERUM 4.9 MMOL/L (3.5-5.1); SODIUM LEVEL 141 MMOL/L (136-145); TOTAL 25(OH) VITAMIN D 39.2 NG/ML (20.0-100.0); TOTAL PROTEIN 6.6 G/DL (5.7-8.2); TRIGLYCERIDES LEVEL 150 MG/DL (<150)
== END ==
LOC: M LAB REF 12:53
PROVIDERS: ATTEND Nurse Practitioner Family
DX: K21.9 Gastro-esophageal reflux disease without esophagitis (principal); Z13.220 Encounter for screening for lipoid disorders; I10 Essential (primary) hypertension; E55.9 Vitamin D deficiency, unspecified

== ENCOUNTER 2023-12-03 17:36 | Emergency (ER) | payer MEDICAID, OTHER ==
[~2023-12-03] VITALS: Ht 175.3 cm; Wt 72.8 kg
[2023-12-03 17:36] VITALS: TEMP 98.3
[2023-12-03] MEDS: IBUPROFEN 800 MG TAB PO ONE (19:42)
[2023-12-03 21:39] VITALS: BP 126/67; O2SAT 95
== END 2023-12-03 22:04 | disposition home or self-care (01) ==
LOC: M ED 17:36
DX: M79.602 Pain in left arm (principal); F17.210 Nicotine dependence, cigarettes, uncomplicated; F12.10 Cannabis abuse, uncomplicated; F10.10 Alcohol abuse, uncomplicated; Z91.09 Other allergy status, other than to drugs and biological substances; Z79.899 Other long term (current) drug therapy

== ENCOUNTER 2024-01-29 09:11 | Day surgery (SDC) | payer OTHER ==
[~2024-01-29] VITALS: Ht 175.3 cm; Wt 70.1 kg
[~2024-01-29 09:11] MED LIST changes: +ALBU8.5H; +AMLO2.5T3 PO; +COSE1INJ SC; -GABA800T4; +GABA800T4 PO; +HYDR-3363 PO; -METH-1165; +METH-1165 PO; -OMEP40CA5; +OMEP40CA5 PO; -PROP80CA; +PROP80CA PO; -VITA1CAP25; +VITA1CAP25 PO
[2024-01-29] MEDS ORDERED: propofoL 200 MG/20 ML VIAL As Ordered ONE (09:31)
[2024-01-29] MEDS ORDERED: LIDOCAINE 2% 100MG/5ML SDV (FOR ANES.) As Ordered ONE (09:31)
[2024-01-29] MEDS: NS 1,000 ML IV ONE (09:35)
[2024-01-29] MEDS ORDERED: MIDAZOLAM INJ 2MG/2ML VIAL As Ordered ONE (10:17)
[2024-01-29] MEDS ORDERED: fentaNYL 100 MCG/2 ML INJECTION As Ordered ONE (10:17)
[2024-01-29 11:03] VITALS: BP 112/75; TEMP 98.2; O2SAT 96
== END 2024-01-29 11:14 | disposition home or self-care (01) ==
LOC: M OPP 09:11
PROVIDERS: ATTEND Internal Medicine Gastroenterology
DX: D12.2 Benign neoplasm of ascending colon (principal); K63.5 Polyp of colon; K64.8 Other hemorrhoids; K58.0 Irritable bowel syndrome with diarrhea; K31.89 Other diseases of stomach and duodenum; R12 Heartburn; F17.200 Nicotine dependence, unspecified, uncomplicated; Z79.1 Long term (current) use of non-steroidal anti-inflammatories (NSAID); Z79.51 Long term (current) use of inhaled steroids; Z79.83 Long term (current) use of bisphosphonates; Z79.891 Long term (current) use of opiate analgesic; Z79.899 Other long term (current) drug therapy
CPT/HCPCS: 43239; 45380; 88305; J2250; J3010

== ENCOUNTER → 2024-04-26 | Outpatient (REF) | payer OTHER, MEDICAID ==
[~2024-04-26] MED LIST changes: +GABA-1635 PO; -GABA800T4 PO
== END ==
LOC: M SFHCDERM 16:42
PROVIDERS: ATTEND Nurse Practitioner Family
DX: L73.2 Hidradenitis suppurativa (principal)

== ENCOUNTER → 2024-07-05 | Outpatient (CLI) | payer OTHER ==
[2024-07-05 11:10] LABS: BASO # 0.1 10^3/uL (0.0-0.2); BASO % 0.7 % (0.0-1.0); EOS # 0.3 10^3/uL (0.0-0.5); HEMOGLOBIN 16.2 g/dl (13.5-17.5); LYMPH # 3.5 10^3/uL (1.5-5.0); LYMPH % 36.7 % (24.0-44.0); MEAN CORPUSCULAR HEMOGLOBIN 33.5 pg (27.0-33.0); MEAN CORPUSCULAR HGB CONC 35.2 g/dl (32.0-36.5); MONO # 0.6 10^3/uL (0.0-0.8); MONO % 6.1 % (2.0-8.0); NEUTROPHILS % 52.5 % (36.0-66.0); PLATELET COUNT, AUTOMATED 304 10^3/uL (150-450); RED BLOOD COUNT 4.84 10^6/uL (4.30-6.10); WHITE BLOOD COUNT 9.6 10^3/uL (4.0-10.0)
[2024-07-05 11:45] LABS: ALBUMIN 3.9 G/DL (3.2-5.2); ALKALINE PHOSPHATASE 107 U/L (40-129); ALT/SGPT 19 U/L (7.0-40); AST/SGOT 28 U/L (<34); BILIRUBIN,TOTAL 0.5 MG/DL (0.3-1.2); BLOOD UREA NITROGEN 10 MG/DL (9-23); CALCIUM LEVEL 9.1 MG/DL (8.5-10.1); CARBON DIOXIDE LEVEL 25 MMOL/L (20-31); CHLORIDE LEVEL 105 MMOL/L (98-107); CREATININE FOR GFR 0.68 MG/DL (0.70-1.30); GLOMERULAR FILTRATION RATE > 60.0 (>60); GLUCOSE, FASTING 80 MG/DL (60-100); POTASSIUM SERUM 5.1 MMOL/L (3.5-5.1); SODIUM LEVEL 141 MMOL/L (136-145); TOTAL PROTEIN 7.4 G/DL (5.7-8.2)
== END ==
LOC: M LAB 09:17
PROVIDERS: ATTEND Nurse Practitioner Family
DX: L73.2 Hidradenitis suppurativa (principal)

== ENCOUNTER 2024-12-24 19:28 | Emergency (ER) | payer MEDICAID, OTHER ==
[~2024-12-24] VITALS: Ht 175.3 cm; Wt 66.8 kg
[2024-12-24] MEDS: NICOTINE POLACRILEX 2 MG GUM PO ONE (20:02)
[2024-12-24 20:12] LABS: PLATELET COUNT, AUTOMATED 223 10^3/uL (150-450)
[2024-12-24 20:37] LABS: AMPHETAMINES LEVEL URINE NEGATIVE (NEGATIVE); BARBITURATES URINE NEGATIVE (NEGATIVE); BENZODIAZEPINES URINE NEGATIVE (NEGATIVE); CANNABINOIDS URINE NEGATIVE (NEGATIVE); COCAINE METABOLITE URINE NEGATIVE (NEGATIVE); METHADONE URINE NEGATIVE (NEGATIVE); OPIATES URINE NEGATIVE (NEGATIVE); PHENCYCLIDINE URINE NEGATIVE (NEGATIVE)
[2024-12-24 20:55] LABS: SALICYLATE LEVEL < 3.0 MG/DL (<30)
[2024-12-24 20:56] LABS: ALT/SGPT 130 U/L (7.0-40); AST/SGOT 163 U/L (<34); CALCIUM LEVEL 9.2 MG/DL (8.5-10.1); CARBON DIOXIDE LEVEL 28 MMOL/L (20-31); CHLORIDE LEVEL 102 MMOL/L (98-107); CREATININE FOR GFR 0.82 MG/DL (0.70-1.30); GLOMERULAR FILTRATION RATE > 90.0 (>60); POTASSIUM SERUM 4.4 MMOL/L (3.5-5.1); SODIUM LEVEL 143 MMOL/L (136-145)
[2024-12-24 21:23] LABS: HIV 1&2 SCREEN NEGATIVE (NEGATIVE)
[2024-12-24 21:38] LABS: ETHYL ALCOHOL (ETHANOL) 0.386 % (0.000-0.010)
[2024-12-25 07:43] VITALS: BP 121/88; TEMP 97.9; O2SAT 97
== END 2024-12-25 09:09 | disposition home or self-care (01) ==
LOC: M ED 19:28
DX: F10.14 Alcohol abuse with alcohol-induced mood disorder (principal); I10 Essential (primary) hypertension; K21.9 Gastro-esophageal reflux disease without esophagitis; J45.909 Unspecified asthma, uncomplicated; J44.9 Chronic obstructive pulmonary disease, unspecified; L73.2 Hidradenitis suppurativa; F41.9 Anxiety disorder, unspecified; F32.A Depression, unspecified; F17.210 Nicotine dependence, cigarettes, uncomplicated; Z91.09 Other allergy status, other than to drugs and biological substances; Z79.51 Long term (current) use of inhaled steroids; Z79.899 Other long term (current) drug therapy

== ENCOUNTER → 2024-12-24 | Outpatient (REF) | payer OTHER, MEDICAID | LOC: M SFHCDERM 17:06 | PROVIDERS: ATTEND Physician Assistant | DX: L73.2 Hidradenitis suppurativa (principal) ==

== ENCOUNTER 2025-03-25 16:35 | Emergency (ER) | payer MEDICAID, OTHER ==
[~2025-03-25] VITALS: Ht 175.3 cm; Wt 67.4 kg
[2025-03-25 18:33] VITALS: BP 129/82; TEMP 98.8; O2SAT 97
== END 2025-03-25 19:47 | disposition left against medical advice (07) ==
LOC: M ED 16:35
DX: Z53.21 Procedure and treatment not carried out due to patient leaving prior to being seen by health care provider (principal)